=== PATIENT | male | born 1960 | race Caucasian/White ===

== ENCOUNTER → 2018-11-14 10:46 | Outpatient (CLI) | payer BC, MEDICARE ==
[2014-07-01 16:47] VITALS: BMI 31.2
[~2018-11-14 10:46] MED LIST: METHOTREXATE2.5 MG PO; NAPROSYN250 MG PO; ORAPRED ODT10 MG/TAB PO
== END | disposition home or self-care (01) ==
LOC: D.MRI 10:46
PROVIDERS: ATTEND Nurse Practitioner Family
DX: R55 Syncope and collapse (principal)

== ENCOUNTER → 2018-12-21 10:09 | Outpatient (CLI) | payer BC, MEDICARE ==
[2014-07-01 16:47] VITALS: BMI 31.2
--- NOTE | ~2018-12-21 | ST ---
PATIENT:JOSE RODRIGUES MEDICAL RECORD: [id number] SEX: M LOCATION:[facility] ORDER #: ADMISSION DATE: 12/21/18 AGE OF PATIENT: 58 REFERRING PHYSICIAN: INTERPRETING PHYSICIAN: NEHAL DAMON MD DATE OF SERVICE: 12/21/2018 PROCEDURE: Nuclear stress test. INDICATIONS: Angina, abnormal ECG, syncope. DESCRIPTION: The patient was exercised on standard Valentino protocol for 7 minutes achieving greater than 85% target heart rate response with 33 mCi of sestamibi injected at peak stress, 11 mCi previously for rest images. FINDINGS: Gated SPECT reveals preserved ejection fraction at 53% with good wall motion and thickening and brightening throughout all segments. SPECT imaging Cardiolite was used as myocardial fusion agent. There is homogeneous uptake throughout all segments at rest and stress with no evidence of inducible ischemia or previous infarction. OVERALL IMPRESSION: 1. This is a normal nuclear stress test with no evidence of inducible ischemia or previous infarction. 2. Gated SPECT reveals a preserved ejection fraction at 53%. In this patient with ongoing symptomatology, the current scan does not suggest the presence of hemodynamically significant coronary artery disease. Evaluate noncardiac etiology of chest pain. TRANSINT:[id number] Voice Confirmation ID: [id number] DOCUMENT ID: [id number] NEHAL DAMON MD CC: [id number] DICTATION DATE: 12/21/18 1447 URBAN REDEVELOPMENT SPECIALIST: 12/22/18 0509 DEP CLI 12/21/[address] [address]
--- NOTE | 2018-12-24 09:13 | EC ---
PATIENT:JOSE RODRIGUES DATE OF SERVICE: 12/21/18 SEX: M MEDICAL RECORD: [id number] DATE OF : 58 LOCATION:[facility], [facility] AGE OF PATIENT: 58 ADMISSION DATE: 12/21/18 REFERRING PHYSICIAN: INTERPRETING PHYSICIAN: PEDRO KWOK MD ECHOCARDIOGRAM REPORT ECHO CHARGES 4 ECHO COMPLETE Date: 12/21/18 CLINICAL DIAGNOSIS: HEART MURMUR ECHOCARDIOGRAPHIC MEASUREMENTS (adult normal given) AC root (d.<3.7cm) 4.1 cm LV Septum d (<1.2 cm> 1.5 cm Valve Excursion 1.7 cm LV Septum (systole) 2.0 cm Left Atria (s.<4.0cm> 3.7 cm LVPW d(<1.2cm) 1.5 cm RV (d.<2.3cm) 4.0 cm LVPW (sytole) 2.0 cm LV diastole(<5.6CM) 5.1 cm MV E-F(>70mm/sec) cm LV systole 2.8 cm LVOT Diameter 2.2 cm MV exc.(>10mm) 1.9 cm Est.ejection fraction (50-75%) % DOPPLER: LVIT cm/sec A 86.0 cm/sec E 75.0 cm/sec LA cm/sec RVSP 37 mmHg LVOT 106 cm/sec AOP1/2T m/s Asc. Ao 133 cm/sec RVOT 73 cm/sec RA cm/sec PA 111 cm/sec AV Gradient Peak 7.10 mmHg AV Mean 3.52 mmHg AV Area 3.4 cm MV Gradient Peak 3.64 mmHg MV Mean 1.41 mmHg MV Area cm COMMENTS: Transport Specialist: 2 JOANNE RODRIGUEZ Core Cutter And Reamer: 3 Dr. Mendoza TAPE# PACS Pericardial Effusion N DATE OF SERVICE: Adequate 2D, color flow, spectral Doppler, and M-Mode LVH is present. LV internal dimension is normal. Wall motion is normal. EF is greater than 55%. Aortic valve is tricuspid. No evidence of stenosis by Doppler interrogation. Left atrium is normal at 3.7 cm. Mitral valve shows no prolapse. Trace MR. Right-sided chambers grossly normal. Trace TR. TRANSINT:[id number] Voice Confirmation ID: [id number] DOCUMENT ID: [id number] ECHOCARDIOGRAM REPORT [id number] JOSE RODRIGUES,PEDRO Galeano MD at 0913 CC: [id number] DICTATION DATE: 12/23/18 1010 PHYSICIAN INTERNIST: 12/23/18 1223 DEP CLI 12/21/18 [address] [place] [address]
== END | disposition home or self-care (01) ==
LOC: D.HCCARDIO 10:00
PROVIDERS: ATTEND Internal Medicine Interventional Cardiology
DX: R01.1 Cardiac murmur, unspecified (principal); I20.9 Angina pectoris, unspecified

== ENCOUNTER 2019-11-27 12:51 | Emergency (ER) | payer MEDICARE ==
[~2019-11-27] VITALS: Ht 167.6 cm; Wt 90.9 kg
[2019-11-27 12:58] VITALS: Ht 167.6 cm; Wt 90.9 kg
[2019-11-27] MEDS ORDERED: ARAVA10 MG PO (13:00)
[2019-11-27] MEDS ORDERED: PREDNISONE5 MG PO (13:01)
[2019-11-27] MEDS ORDERED: VIAGRA100 MG PO (13:02)
[2019-11-27] MEDS ORDERED: XARELTO20 MG PO (13:02)
[2019-11-27] MEDS ORDERED: CHLORTHALIDONE25 MG PO (13:03)
[2019-11-27] MEDS ORDERED: NORVASC5 MG PO (13:04)
[2019-11-27 13:24] LABS: BASOPHILS 0.5 % (0-2); EOSINOPHILS 1.4 % (0-7); HEMATOCRIT 50.1 % (42.0-54.0); HEMOGLOBIN 17.1 g/dL (13.5-17.5); IMMATURE GRANULOCYTES 0.9 % (0-5); LYMPHOCYTES 12.4 % (15-50); MCH 30.9 pg (26.0-34.0); MCHC 34.1 g/dL (31.0-37.0); MCV 90.6 fL (80.0-100.0); MEAN PLATELET VOLUME 9.2 fL (7.4-10.4); MONOCYTES 11.7 % (2-11); NEUTROPHILS 73.1 % (40-80); PLATELET COUNT 269 10x3/uL (130-400); RBC 5.53 10x6/uL (4.20-6.10); RDW 16.9 % (11.5-14.5); WBC 12.9 10x3/uL (4.8-10.8)
[2019-11-27 13:39] LABS: CALCIUM 9.3 mg/dL (8.5-10.1); CARBON DIOXIDE 26.7 mmol/L (21.0-32.0); CREATININE - SERUM 1.2 mg/dL (0.6-1.3); POTASSIUM - SERUM 3.7 mmol/L (3.5-5.1)
[2019-11-27 13:45] LABS: ALBUMIN 3.4 g/dL (3.4-5.0); BILIRUBIN - TOTAL 0.45 mg/dL (0.2-1.3); PROTEIN - SERUM 7.2 g/dL (6.4-8.2)
[2019-11-27 14:00] LABS: INR 1.57 (0.85-1.17); PROTIME 18.6 SECONDS (11.6-15.0)
[2019-11-27 14:01] LABS: APTT 57.9 SECONDS (22.8-39.4)
[2019-11-27 16:07] VITALS: BP 173/101
== END 2019-11-27 16:08 | disposition home or self-care (01) ==
LOC: D.ER 12:51
PROVIDERS: Family Medicine
DX: K22.6 Gastro-esophageal laceration-hemorrhage syndrome (principal); R13.10 Dysphagia, unspecified; K14.9 Disease of tongue, unspecified; I10 Essential (primary) hypertension; Z72.0 Tobacco use

== ENCOUNTER → 2020-06-24 10:00 | Outpatient (CLI) | payer MEDICARE ==
[2019-11-27 12:58] VITALS: BMI 32.3
[~2020-06-24 10:00] MED LIST changes: +ARAVA10 MG PO; +CHLORTHALIDONE25 MG PO; +NORVASC5 MG PO; +PREDNISONE5 MG PO; +VIAGRA100 MG PO; +XARELTO20 MG PO
[2020-06-24 12:19] LABS: ANION GAP 11.5 mmol/L (8-16); CALCIUM 9.2 mg/dL (8.5-10.1); CARBON DIOXIDE 27.1 mmol/L (21.0-32.0); CREATININE - SERUM 1.4 mg/dL (0.6-1.3); POTASSIUM - SERUM 4.6 mmol/L (3.5-5.1)
== END | disposition home or self-care (01) ==
LOC: D.LAB 08:15 → D.CT 09:30 → D.LAB 10:00
PROVIDERS: ATTEND Internal Medicine Gastroenterology
DX: R10.31 Right lower quadrant pain (principal); R19.4 Change in bowel habit; K92.1 Melena

== ENCOUNTER → 2020-12-22 10:21 | Outpatient (CLI) | payer MEDICARE | END | disposition home or self-care (01) | LOC: D.NM 10:21 | DX: S81.841A Puncture wound with foreign body, right lower leg, initial encounter (principal); R60.0 Localized edema ==

== ENCOUNTER 2021-01-16 12:59 | Inpatient (IN) | payer MEDICARE ==
--- NOTE | ~2021-01-16 | HEMODYNAMI ---
PATIENT:JOSE RODRIGUES MEDICAL RECORD: [id number] : 58 LOCATION:D. D.213 ADMISSION DATE: 01/16/21 Generatedon:115:06 Patient name: JOSE RODRIGUES Patient #: [id number] SSN: : 1960 Date of study: 01/16/2021 Page: Of Hemodynamic Procedure Report Patient Data Patient Demographics First Name: JOSE Gender: Male Last Name: RAVI : 1960 Middle Initial: ALLISON Age: 60 year(s) Patient #: [id number] Race: Unknown Additional ID: [id number] Contact details Address: [address] [place] [address] State: [place] City: [place] Zip code: [address] Admission Admission Data Admission Date: 01/16/2021 Admission Time: 12:59 Room #: [facility] Procedure Procedure Types Cath Procedure Peripheral Cath Diagnostic Procedure PICC PICC Line Placement Procedure Description Procedure Date Procedure Date: 01/16/2021 Procedure Start Time: 14:55 Procedure Staff Name Function Naeem Woodson MD Performing Physician Mayuri De Jesus RT Real Estate Specialist Patricia Zaldivar RN Nurse Tamra May RN Nurse Prem Mcrae RT Scrub Procedure Data Cath Procedure Fluoroscopy Diagnostic fluoroscopy Total fluoroscopy Time: 0.2 time: 0.2 min min Diagnostic fluoroscopy Total fluoroscopy dose: 1 dose: 1 mGy mGy Hemodynamics Rest Pre Cath Intra NCS Post Cath Procedure Log Time Note 14:33:04 Use device set PICC 14:33:06 SHIELD Sorbaview ([id number]) opened to sterile field. 14:33:07 Sterile Angiographic Pack opened to sterile field. 14:33:08 Bag Decanter (2002) opened to sterile field. 14:33:21 PowerPICC 5Fr double lumen catheter opened to sterile field. 14:33:25 PICC 14:47:19 Time tracking: Regular hours (M-F 7:00 - 5:00) 14:48:01 Patient received from [employer] to IR Alert and oriented. Tansferred to table in Supine position. 14:48:12 Right Arm area was prepped with chlora-prep and draped in sterile fashion 14:54:21 --------ALL STOP TIME OUT------ 14:54:22 Final Timeout: patient, procedure, and site verified with staff and physician. All members of the team are in agreement. 14:55:06 Procedure started. 14:55:06 Full Disclosure recording started 14:55:12 Local anesthetic to right arm with Lidocaine 1% by Naeem Woodson MD.INITIAL ACCESS ONLY 15:03:41 PICC line was trimmed to 43cm and advanced to the superior vena cava.Position verified under fluoroscopy. 15:04:57 Procedure ended.(Physican Out) 15:05:12 Fluoroscopy time 00.20 minutes. 15:05:15 Fluoroscopy dose: 1 mGy 15:05:15 Flurop Dose total: 1 15:05:18 Procedure and supply charges have been captured, reviewed, submitted and are correct. 15:06:19 Report given to [employer]. Device Usage Item Name Manufacture Quantity Catalog Hospital Part Current Minimal Lot# / Number Charge Number Stock Stock Serial# Code [facility] Centurion 1 [id number] 5 Sorbaview ([id number]) Sterile Cardinal 1 [id number] 5 Angiographic Health Pack Bag Decanter Microtek 1 [id number] 5 () [employer] PowerPICC Bard 1 [id number] 5 5Fr double lumen catheter Signature Audit [place] Stage Time Signature Unsigned Intra-Procedure 01/16/2021 Mayuri De Jesus 3:06:39 PM RT(R) [facility] [address] [place] [address]
[2021-01-16 13:28] VITALS: BP 156/91
[2021-01-16 14:22] LABS: HEMATOCRIT 37.1 % (42.0-54.0); HEMOGLOBIN 12.2 g/dL (13.5-17.5); LYMPHOCYTE ABS# 1.89 10x3/uL (1.32-3.57); MCH 31.1 pg (26.0-34.0); MCHC 32.9 g/dL (31.0-37.0); MCV 94.6 fL (80.0-100.0); MEAN PLATELET VOLUME 8.9 fL (7.4-10.4); NEUTROPHIL ABS# 12.46 10x3/uL (1.78-5.38); RBC 3.92 10x6/uL (4.20-6.10); WBC 15.7 10x3/uL (4.8-10.8)
[2021-01-16 14:32] LABS: CALCIUM 9.2 mg/dL (8.5-10.1); CARBON DIOXIDE 23.8 mmol/L (21.0-32.0); CREATININE - SERUM 1.6 mg/dL (0.6-1.3); PLATELET COUNT 452 10x3/uL (130-400); POTASSIUM - SERUM 4.8 mmol/L (3.5-5.1)
[2021-01-16 14:39] LABS: ALBUMIN 2.7 g/dL (3.4-5.0); BILIRUBIN - TOTAL 0.32 mg/dL (0.2-1.3); PROTEIN - SERUM 6.8 g/dL (6.4-8.2)
[2021-01-16 15:43] LABS: EOSINOPHILS 3 % (0-7); LYMPHOCYTES 9 % (15-50); MONOCYTES 2 % (2-11); NEUTROPHILS 86 % (40-80); PLATELET ESTIMATE NORMAL
[2021-01-16 15:51] VITALS: BP 155/58
[2021-01-16 20:19] VITALS: BP 147/87
[2021-01-17 05:47] VITALS: BP 141/82
[2021-01-17 06:47] LABS: EOSINOPHILS 4.4 % (0-7); HEMATOCRIT 37.2 % (42.0-54.0); HEMOGLOBIN 11.9 g/dL (13.5-17.5); IMMATURE GRANULOCYTES 7.6 % (0-5); LYMPHOCYTE ABS# 1.85 10x3/uL (1.32-3.57); LYMPHOCYTES 16.8 % (15-50); MCH 30.2 pg (26.0-34.0); MCV 94.4 fL (80.0-100.0); MEAN PLATELET VOLUME 9.1 fL (7.4-10.4); MONOCYTES 15.2 % (2-11); NEUTROPHIL ABS# 6.05 10x3/uL (1.78-5.38); PLATELET COUNT 461 10x3/uL (130-400); RBC 3.94 10x6/uL (4.20-6.10)
[2021-01-17 07:21] LABS: ALBUMIN 2.4 g/dL (3.4-5.0); ANION GAP 12.9 mmol/L (8-16); BILIRUBIN - TOTAL 0.37 mg/dL (0.2-1.3); CALCIUM 8.5 mg/dL (8.5-10.1); CARBON DIOXIDE 25.2 mmol/L (21.0-32.0); CREATININE - SERUM 1.3 mg/dL (0.6-1.3); POTASSIUM - SERUM 4.1 mmol/L (3.5-5.1); PROTEIN - SERUM 6.2 g/dL (6.4-8.2)
[2021-01-17 08:26] VITALS: BP 139/85
[2021-01-17 15:20] VITALS: BP 138/99
[2021-01-17 21:01] VITALS: BP 127/82
[2021-01-18 05:04] VITALS: BP 138/81
[2021-01-18 08:27] VITALS: BP 139/78
[2021-01-18 08:27] LABS: BASOPHILS 0.6 % (0-2); HEMATOCRIT 35.8 % (42.0-54.0); HEMOGLOBIN 11.3 g/dL (13.5-17.5); IMMATURE GRANULOCYTES 5.8 % (0-5); LYMPHOCYTE ABS# 1.81 10x3/uL (1.32-3.57); LYMPHOCYTES 15.6 % (15-50); MCH 29.7 pg (26.0-34.0); MCHC 31.6 g/dL (31.0-37.0); MCV 94.2 fL (80.0-100.0); MEAN PLATELET VOLUME 9.2 fL (7.4-10.4); MONOCYTES 14.9 % (2-11); NEUTROPHIL ABS# 6.89 10x3/uL (1.78-5.38); NEUTROPHILS 59.1 % (40-80); PLATELET COUNT 430 10x3/uL (130-400); WBC 11.6 10x3/uL (4.8-10.8)
[2021-01-18 08:54] LABS: ALBUMIN 2.5 g/dL (3.4-5.0); BILIRUBIN - TOTAL 0.34 mg/dL (0.2-1.3); CALCIUM 8.7 mg/dL (8.5-10.1); CARBON DIOXIDE 26.1 mmol/L (21.0-32.0); CREATININE - SERUM 1.2 mg/dL (0.6-1.3); POTASSIUM - SERUM 4.1 mmol/L (3.5-5.1); PROTEIN - SERUM 6.3 g/dL (6.4-8.2)
[2021-01-18 12:10] VITALS: BP 144/77
[2021-01-18 16:06] VITALS: BP 138/83
[2021-01-18 20:00] VITALS: BP 135/85
--- NOTE | 2021-01-18 20:00 | NUR ---
INITIAL ROUNDS AND ASSESSMENT COMPLETED. PT RESTING IN BED. CALL LIGHT IN REACH. SEE ASSESSMENT.
[2021-01-19 05:58] VITALS: BP 116/65
[2021-01-19 07:52] LABS: BASOPHILS 1.1 % (0-2); EOSINOPHILS 3.4 % (0-7); HEMATOCRIT 37.1 % (42.0-54.0); HEMOGLOBIN 11.9 g/dL (13.5-17.5); IMMATURE GRANULOCYTES 5.4 % (0-5); LYMPHOCYTE ABS# 1.76 10x3/uL (1.32-3.57); LYMPHOCYTES 16.1 % (15-50); MCH 30.3 pg (26.0-34.0); MCHC 32.1 g/dL (31.0-37.0); MCV 94.4 fL (80.0-100.0); MEAN PLATELET VOLUME 9.4 fL (7.4-10.4); MONOCYTES 15.7 % (2-11); NEUTROPHIL ABS# 6.38 10x3/uL (1.78-5.38); NEUTROPHILS 58.3 % (40-80); PLATELET COUNT 389 10x3/uL (130-400); RBC 3.93 10x6/uL (4.20-6.10); RDW 15.8 % (11.5-14.5); WBC 10.9 10x3/uL (4.8-10.8)
[2021-01-19 08:08] LABS: ALBUMIN 2.6 g/dL (3.4-5.0); ANION GAP 13.4 mmol/L (8-16); BILIRUBIN - TOTAL 0.31 mg/dL (0.2-1.3); CALCIUM 9.1 mg/dL (8.5-10.1); CARBON DIOXIDE 23.7 mmol/L (21.0-32.0); CREATININE - SERUM 1.1 mg/dL (0.6-1.3); POTASSIUM - SERUM 4.1 mmol/L (3.5-5.1); PROTEIN - SERUM 6.6 g/dL (6.4-8.2)
--- NOTE | 2021-01-19 09:41 | NUR ---
AM MEDS GIVEN WITH PRN PAIN MEDICATION. PT STATES HE IS READY TO GO HOME ON HOME HEALTH, WILL SPEAK WITH CM REGARDING THIS. NO FURTHER NEEDS VOICED. CLWR.
[2021-01-19] MEDS ORDERED: LISINOPRIL10 MG PO (11:04)
[2021-01-19] MEDS ORDERED: LIPITOR20 MG PO (11:04)
[2021-01-19] MEDS ORDERED: PLAVIX75 MG PO (11:04)
[2021-01-19] MEDS ORDERED: LEVAQUIN750 MG PO (11:10)
--- NOTE | 2021-01-19 11:18 | NUR ---
PT WILL BE D/C HOME ON ORAL ANTIBIOTICS TODAY PER NATHANIEL KINSEY. PT AWARE AND AGREES TO PLAN OF CARE.
--- NOTE | 2021-01-19 12:19 | NUR ---
PT SPOKE WITH TIO ARMSTRONG AT THIS TIME REGARDING D/C PLAN. PT WILL BE D/C HOME WITH IV ANTIBIOTICS VIA PICC LINE. PICC LINE TO RIGHT UPPER ARM TO STAY IN PLACE FOR D/C / HOME HEALTH USE. CASE MGMT WORKING WITH HOME HEALTH FOR D/C.
--- NOTE | 2021-01-19 16:00 | NUR ---
PT STATES HE IS GOING HOME AT 5PM REGARDLESS IF HOME HEALTH OR IV MEDICATION IS SET UP. SPOKE WITH BANDAR HANDY PHYSICAL PLANT MANAGER WHO ALSO SPOKE WITH PT , NATHANIEL KINSEY ALSO SPOKE WITH PT. PT IS FRUSTRATED AND IS READY TO GO HOME. PT STATES HE WILL WAIT UNTIL 5PM BEFORE HE CALLS HIS .
--- NOTE | 2021-01-19 16:00 | NUR ---
WENT TO SPEAK TO PATIENT HE IS ADAMENT ABOUT "NOT STAYING ANOTHER NIGHT". WE ARE STILL AWAITING APPROVAL FROM ON LICENSE OF [facility] AND FOR IV ABX FROM [facility]. I TALKED TO THE PATIENT FOR A PLAN B IN CASE THINGS DID NOT GO THROUGH PER HIS TIME FRAME. TIO CARRILLO CAME INTO ROOM WITH ME AND WE WILL D/C THE PICC LINE AND CALL IN ORAL ABX IF WE DON'T HEAR ANYTHING BY 5. PATIENT STATES HE IS OKAY WITH THIS PLAN AND IS STILL UPSET THAT HE HAS RECEIVED THE PICC LINE FOR IV ABX AND NOW MAY NOT GO HOME WITH IT. NATHANIEL TOLD HIM THAT HE HAS RECEIVED SEVERAL DAYS OF IV ABX AND CAN CONTINUE WITH ORAL IF IT DOESN'T GO THROUGH.
[2021-01-19] MEDS ORDERED: LEVAQUIN750 MG (16:36)
--- NOTE | 2021-01-19 17:00 | NUR ---
RIGHT UPPER ARM PICC LINE REMOVED USING STERILE TECHNIQUE PAST EXPLAINING TO PATIENT. THERE IS SOME SLIGHT BLISTERS NOTED UNDER TAPE AREA. PATIENT INSTRUCTED TO LAY FLAT X 15 MIN.
--- NOTE | 2021-01-19 17:04 | NUR ---
PT GIVEN D/C INSTRUCTIONS AT THIS TIME. NO QUESTIONS VOICED. PT STATES UNDERSTANDING. PT IS LYING FLAT D/T PICC LINE REMOVAL. PT STATES HIS WILL BE HERE SHORTLY. ALL BELONGINGS GATHERED
--- NOTE | 2021-01-19 17:18 | NUR ---
PT WHEELED TO PRIVATE VEHICLE WITH BELONGINGS AT THIS TIME, PT ASSISTED IN TAKING BAGS TO VEHICLE. NO DISTRESS NOTED ON DEPARTURE.
== END 2021-01-19 17:19 | disposition home or self-care (01) | DRG 540 ==
LOC: D.M2 12:59
PROVIDERS: Emergency Medicine; Radiology Diagnostic Radiology; ADMIT Family Medicine; ATTEND Family Medicine
PROC: 05HY33Z Insertion of Infusion Device into Upper Vein, Percutaneous Approach (ICD-10-PCS; principal; 2021-01-16 14:47)
DX: M86.172 Other acute osteomyelitis, left ankle and foot (principal); L03.116 Cellulitis of left lower limb; I10 Essential (primary) hypertension; K64.9 Unspecified hemorrhoids; R73.9 Hyperglycemia, unspecified; M10.9 Gout, unspecified; D64.9 Anemia, unspecified; Z86.73 Personal history of transient ischemic attack (TIA), and cerebral infarction without residual deficits; Z72.0 Tobacco use